=== PATIENT | female | born 1975 | race Caucasian/White ===

== ENCOUNTER 2017-11-18 10:12 | Emergency (ER) | payer OTHER ==
[~2017-11-18] VITALS: Ht 157.5 cm; Wt 63.5 kg
[~2017-11-18 10:12] MED LIST: MOTRIN 800MG T800 MG PO; PERCOCET 325 MG1 TA2 PO; ROBITUSSIN W/CO10 ML PO
--- NOTE | 2017-11-18 10:30 | ED GENERAL ADULT ---
History of Present Illness General Chief Complaint: Low Back Pain/Injury Stated Complaint: LOW BACK PAIN/RT LEG PAIN Source: patient Exam Limitations: no limitations Vital Signs & Intake/Output Vital Signs & Intake/Output Vital Signs Date Time Temp Pulse Resp B/P B/P Pulse O2 O2 Flow FiO2 Mean Ox Delivery Rate 11/18 1339 98.3 72 18 111/59 98 11/18 1018 97.4 64 20 108/76 99 Room Air Allergies Coded Allergies: NO KNOWN ALLERGIES (09/28/14) Reconcile Medications No Known Home Medications Triage Note: STATES SHE LIFTED A BAG YESTERDAY PULLING A MUSCLE IN HER RIGHT LOWER BACK STATES TODAY SHE TOOK HER PURSE OFF HER SHOULDER IN THE CAR SHE GOT A BAD PAIN IN HER RIGHT SIDE AND DOWN RIGHT LEG Triage Nurses Notes Reviewed? yes Onset: Abrupt Duration: day(s): Timing: recent history : No Patient currently breastfeeds: No HPI: 11/18/17 11:31 AM 42-year-old female presents to the emergency department complaining of severe right-sided low back pain. 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 She lifted a bag of fertilizer yesterday and now has had ongoing severe pain to the right paralumbar area. She denies any bowel or bladder dysfunction. She does say that the pain radiates down the right leg. No fever. No abdominal pain. No other complaints. Past History Travel History Traveled to [place] past 21 day No Medical History Any Pertinent Medical History? see below for history Neurological: NONE EENT: NONE Cardiovascular: NONE Respiratory: NONE Gastrointestinal: NONE Hepatic: NONE Renal: NONE Musculoskeletal: NONE Psychiatric: NONE Endocrine: NONE Blood Disorders: NONE Cancer(s): NONE PODIATRY DOCTOR/Reproductive: MENORRHAGIA Surgical History Surgical History: hysterectomy Psychosocial History What is your primary language Cambodian Tobacco Use: Never used ETOH Use: occasional use Illicit Drug Use: denies illicit drug use Family History Hx Contributory? No Review of Systems Review of Systems Constitutional: Denies: fever. EENTM: Reports: no symptoms. Respiratory: Denies: short of breath. Cardiovascular: Denies: chest pain. GI: Denies: abdominal pain. Genitourinary: Reports: no symptoms. Musculoskeletal: Reports: see HPI, back pain. Skin: Denies: rash. Neurological/Psychological: Reports: see HPI. Hematologic/Endocrine: Reports: no symptoms. Immunologic/Allergic: Reports: no symptoms. Physical Exam Physical Exam General Appearance: well developed/nourished, alert, awake, anxious, mild distress Head: atraumatic, normal appearance Eyes: Bilateral: normal appearance, PERRL, EOMI. Ears, Nose, Throat: normal pharynx, normal ENT inspection, hearing grossly normal Neck: normal inspection, supple, full range of motion Respiratory: normal breath sounds, chest non-tender, no respiratory distress Cardiovascular: regular rate/rhythm Peripheral Pulses: 4+ radial (R), 4+ radial (L) Gastrointestinal: soft, non-tender Back: decreased range of motion, muscle spasm Extremities: normal inspection, normal range of motion, no edema Neurologic/Psych: no motor/sensory deficits, awake, alert, oriented x 3 Skin: intact, normal color, warm/dry Core Measures ACS in differential dx? No CVA/TIA Diagnosis: No Sepsis Present: No Sepsis Focused Exam Completed? No Progress Differential Diagnoses I considered the following diagnoses in my evaluation of the patient: [Lumbar strain, disc herniation, sciatica] Plan of Care: Current Medications Sig/Imtiaz Start time Last Medication Dose Stop Time Status Admin Ketorolac 30 MG ONCE ONE 11/18 1115 CAN Tromethamine 11/18 111 (Toradol) Methylprednisolone 125 MG ONCE ONE 11/18 1115 CAN (Solu Medrol) 11/18 1116 Initial ED EKG: none Departure Departure Disposition: HOME OR SELF CARE Condition: Stable Clinical Impression Primary Impression: Lumbar strain Secondary Impressions: Back pain Referrals: Marco Leal MD (PCP/Family) Departure Forms: Customer Survey General Discharge Information Prescriptions: Current Visit Scripts No Known Home Medications Comments Follow-up with Dr. Leal this week. Follow-up with the orthopedist. Prednisone, Flexeril, Motrin because directed. Critical Care Note Critical Care Note Critical Care Time: non-applicable Clinical Impression Primary Impression: Lumbar strain Secondary Impressions: Back pain Referrals: Marco Leal MD (PCP/Family) Departure Forms: Customer Survey General Discharge Information Prescriptions: Current Visit Scripts No Known Home Medications Critical Care Note Critical Care Note Critical Care Time: non-applicable
--- NOTE | 2017-11-18 12:23 | RADIOLOGY REPORT ---
EXAMINATION: XR LUMBOSACRAL SPINE CLINICAL INFORMATION: Pain. COMPARISON: None TECHNIQUE: AP and lateral views of the lumbosacral spine were obtained. FINDINGS: Vertebral body heights and alignment are normal. The disc spaces are well-maintained. No acute fracture or spondylolisthesis is seen. There is mild spondylosis at L3-L4 and L4-L5. The posterior elements are intact. The soft tissue planes are unremarkable. IMPRESSION: 1. No acute fracture or spondylolisthesis is seen. 2. The disc spaces are well-maintained. 3. There is mild spondylosis at L3-L4 and L4-L5.
[2017-11-18 13:39] VITALS: BP 111/59
[2017-11-18] MEDS ORDERED: PREDNISONE20 M1 PO (13:50)
[2017-11-18] MEDS ORDERED: MOBIC15 M1 PO (13:50)
[2017-11-18] MEDS ORDERED: CYCLOBENZAPRINE10 M1 PO (13:50)
== END 2017-11-18 14:13 ==
LOC: ERH 10:12
DX: S39.012A Strain of muscle, fascia and tendon of lower back, initial encounter (principal); X58.XXXA Exposure to other specified factors, initial encounter; Y92.89 Other specified places as the place of occurrence of the external cause; Y93.89 Activity, other specified
CPT/HCPCS: 72100; 96372; J1885